=== PATIENT | female | born 1990 | race African-American/Black ===

== ENCOUNTER 2021-04-18 14:05 | Emergency (ER) | payer OTHER ==
[~2021-04-18] VITALS: Ht 157.5 cm; Wt 90.7 kg
[~2021-04-18 14:05] MED LIST: IBUPROFEN 600600 M1 PO; NORCO 5-325 TA1 EACH PO; PHENERGAN 25 MG25 M1 PO; VALIUM2 MG PO
[2021-04-18] MEDS ORDERED: CELEBREX100 MG/1 C PO (14:36)
[2021-04-18] MEDS ORDERED: NEURONTIN 300M300 M2 PO (14:36)
[2021-04-18] MEDS ORDERED: VOLTAREN ARTHRI20 GM TOP (15:55)
[2021-04-18 16:21] VITALS: BP 112/75
== END 2021-04-18 16:22 | disposition home or self-care (01) ==
LOC: ER 14:05
DX: M79.671 Pain in right foot (principal); J45.909 Unspecified asthma, uncomplicated; R22.41 Localized swelling, mass and lump, right lower limb; Z98.890 Other specified postprocedural states